=== PATIENT | female | born 1975 | race Hispanic/Latino ===

== ENCOUNTER 2017-09-23 09:23 | Observation (INO) | payer OTHER ==
[2017-09-23] MEDS ORDERED: IPRATROPIUM/ALBUTEROL SULFATE 3 ML SOLUTION IH ONE ×2 (09:38→09:50)
[2017-09-23] MEDS ORDERED: METHYLPREDNISOLONE SOD SUCC 125MG/2ML VIAL ONE (09:52)
[2017-09-23 10:04] LABS: BASOPHILS % (AUTO) 0.9 % (0.0-5.0); EOSINOPHILS % (AUTO) 12.5 % (0.0-8.0); HEMATOCRIT 35.9 % (36-48); LYMPHOCYTES % (AUTO) 16.7 % (21.0-51.0); MEAN CORPUSCULAR HEMOGLOBIN 25.6 pg (27.0-33.0); MEAN CORPUSCULAR HGB CONC 32.4 g/dL (32.0-36.0); MEAN CORPUSCULAR VOLUME 78.9 fL (79-99); MONOCYTES % (AUTO) 4.3 % (3.0-13.0); NEUTROPHILS % (AUTO) 65.6 % (40.0-77.0); NUCLEATED RED BLOOD CELLS 0.1 % (0.0-0.19); PLATELET COUNT (AUTO) 376 K/uL (130-400); RED BLOOD CELL COUNT(AUTO) 4.54 MIL/uL (4.00-5.50); RED CELL DISTRIBUTION WIDTH 16.8 % (11.0-15.5); WHITE BLOOD COUNT (AUTO) 9.8 K/uL (4.8-10.8)
[2017-09-23 10:29] LABS: CREATININE 0.8 mg/dL (0.5-1.5); POTASSIUM 4.2 mmol/L (3.5-5.1)
[2017-09-23 10:35] LABS: ALBUMIN 3.4 g/dL (3.5-5.0); BILIRUBIN,TOTAL 0.3 mg/dL (0.2-1.0); TOTAL PROTEIN, SERUM 7.4 g/dL (6.0-8.3)
== END 2017-09-23 11:39 | disposition left against medical advice (07) ==
LOC: EDH 09:23 → EDHIP 09:24
PROVIDERS: ADMIT Internal Medicine Nephrology; ATTEND Internal Medicine Nephrology
DX: J45.901 Unspecified asthma with (acute) exacerbation (principal); J18.9 Pneumonia, unspecified organism; J96.01 Acute respiratory failure with hypoxia
CPT/HCPCS: 36415; 71045; 80053; 85025; 94640 ×2; 99285; G0378 ×2; J2930

== ENCOUNTER 2018-05-17 11:56 | Emergency (ER) | payer OTHER ==
[2018-05-17] MEDS ORDERED: METHYLPREDNISOLONE SOD SUCC 125MG/2ML VIAL ONE (12:07)
[2018-05-17] MEDS ORDERED: IPRATROPIUM/ALBUTEROL SULFATE 3 ML SOLUTION IH ONE (12:10)
== END 2018-05-17 13:06 | disposition home or self-care (01) ==
LOC: EDH 11:56
DX: J45.21 Mild intermittent asthma with (acute) exacerbation (principal); Z79.899 Other long term (current) drug therapy
CPT/HCPCS: 94640; 96372; 99283; J2930

== ENCOUNTER 2019-05-16 09:00 | Emergency (ER) | payer OTHER ==
[2019-05-16] MEDS ORDERED: IPRATROPIUM/ALBUTEROL SULFATE 3 ML SOLUTION IH ONE (09:15)
[2019-05-16] MEDS ORDERED: METHYLPREDNISOLONE SOD SUCC 125MG/2ML VIAL ONE (09:26)
[2019-05-16] MEDS ORDERED: ALBUTEROL SULFATE 0.083% 2.5 MG/3 ML INH IH ONE (10:12)
== END 2019-05-16 11:35 | disposition home or self-care (01) ==
LOC: EDH 09:00
DX: J45.41 Moderate persistent asthma with (acute) exacerbation (principal)
CPT/HCPCS: 94640 ×3; 96374; 99291; J2930

== ENCOUNTER 2020-04-02 17:15 | Emergency (ER) | payer OTHER ==
[2020-04-02] MEDS ORDERED: ONDANSETRON HCL 4 MG/2 ML VIAL ONE (17:36)
[2020-04-02] MEDS ORDERED: SODIUM CHLORIDE 0.9% 1000ML 1,000 ML IV ONE (17:36)
[2020-04-02 17:37] LABS: BASOPHILS % (AUTO) 0.4 % (0.0-5.0); EOSINOPHILS % (AUTO) 2.9 % (0.0-8.0); HEMATOCRIT 35.4 % (36-48); MEAN CORPUSCULAR HEMOGLOBIN 21.9 pg (27.0-33.0); MEAN CORPUSCULAR HGB CONC 28.8 g/dL (32.0-36.0); MONOCYTES % (AUTO) 4.2 % (3.0-13.0); NEUTROPHILS % (AUTO) 81.1 % (40.0-77.0); PLATELET COUNT (AUTO) 522 K/uL (130-400); RED BLOOD CELL COUNT(AUTO) 4.66 MIL/uL (4.00-5.50); RED CELL DISTRIBUTION WIDTH 17.3 % (11.0-15.5); WHITE BLOOD COUNT (AUTO) 14.2 K/uL (4.8-10.8)
[2020-04-02 17:52] LABS: CREATININE 0.7 mg/dL (0.5-1.5); POTASSIUM 3.6 mmol/L (3.5-5.1)
[2020-04-02 17:58] LABS: ALBUMIN 3.9 g/dL (3.5-5.0); BILIRUBIN,TOTAL 0.3 mg/dL (0.2-1.0); TOTAL PROTEIN, SERUM 7.9 g/dL (6.0-8.3)
[2020-04-02 19:08] LABS: APPEARANCE,URINE Clear (CLEAR); BILIRUBIN,URINE Negative (NEGATIVE); COLOR,URINE Yellow (YELLOW); GLUCOSE, URINE (UA) Negative (NEGATIVE); KETONES,URINE Negative (NEGATIVE); LEUKOCYTE ESTERASE ,URINE Negative (NEGATIVE); NITRATE,URINE Negative (NEGATIVE); OCCULT BLOOD,URINE Negative (NEGATIVE); PROTEIN,URINE Negative (NEGATIVE)
[2020-04-02 19:10] LABS: HCG,QUAL RESULT NEGATIVE (NEGATIVE)
[2020-04-02] MEDS ORDERED: MECLIZINE HCL 25 MG TABLET ONE (19:13)
== END 2020-04-02 19:36 | disposition home or self-care (01) ==
LOC: EDH 17:15
DX: H81.10 Benign paroxysmal vertigo, unspecified ear (principal); J45.909 Unspecified asthma, uncomplicated; Z72.0 Tobacco use
CPT/HCPCS: 36415; 80053; 81003; 81025; 85025; 93005; 96361; 96374; 99284; J2405; J7030

== ENCOUNTER 2021-03-05 21:49 | Emergency (ER) | payer OTHER ==
[~2021-03-05] VITALS: Ht 160 cm; Wt 91.6 kg
[2021-03-05 22:28] LABS: BASOPHILS % (AUTO) 0.5 % (0.0-5.0); EOSINOPHILS % (AUTO) 5.4 % (0.0-8.0); HEMATOCRIT 37.4 % (36-48); LYMPHOCYTES % (AUTO) 17.4 % (21.0-51.0); MEAN CORPUSCULAR HEMOGLOBIN 22.3 pg (27.0-33.0); MEAN CORPUSCULAR HGB CONC 29.1 g/dL (32.0-36.0); MEAN CORPUSCULAR VOLUME 76.6 fL (79-99); MONOCYTES % (AUTO) 5.3 % (3.0-13.0); NEUTROPHILS % (AUTO) 70.9 % (40.0-77.0); PLATELET COUNT (AUTO) 418 K/uL (130-400); RED BLOOD CELL COUNT(AUTO) 4.88 MIL/uL (4.00-5.50); RED CELL DISTRIBUTION WIDTH 17.6 % (11.0-15.5); WHITE BLOOD COUNT (AUTO) 12.2 K/uL (4.8-10.8)
[2021-03-05 22:38] LABS: CREATININE 0.7 mg/dL (0.5-1.5); POTASSIUM 3.8 mmol/L (3.5-5.1)
[2021-03-05 22:39] VITALS: BP 140/86
[2021-03-05 22:47] LABS: ALBUMIN 3.7 g/dL (3.5-5.0); BILIRUBIN,TOTAL 0.3 mg/dL (0.2-1.0); CRP QUANTITATIVE 10.1 mg/L (0.00-9.0); TOTAL PROTEIN, SERUM 7.9 g/dL (6.0-8.3)
[2021-03-05] MEDS ORDERED: IPRATROPIUM/ALBUTEROL SULFATE 3 ML SOLUTION IH ONE (23:00)
[2021-03-05] MEDS ORDERED: ALBUTEROL 0.083% 2.5 MG/3 ML INH IH ONE (23:00)
[2021-03-05] MEDS ORDERED: SOLU-MEDROL 125MG VIAL IVP ONE (23:00)
[2021-03-05 23:56] VITALS: BP 125/79
[2021-03-06] MEDS ORDERED: ALBUTEROL 0.083% 2.5 MG/3 ML INH IH ONE (00:30)
[2021-03-06 00:35] VITALS: BP 140/80
[2021-03-06] MEDS ORDERED: ALBU1.252 IH (02:35)
[2021-03-06] MEDS ORDERED: ALBU8.5H8 IH (02:35)
[2021-03-06] MEDS ORDERED: PRED20TA3 PO (02:35)
[2021-03-06 02:56] VITALS: BP 112/70
== END 2021-03-06 03:05 | disposition home or self-care (01) ==
LOC: EDH 21:49
DX: J45.901 Unspecified asthma with (acute) exacerbation (principal); Z20.822 Contact with and (suspected) exposure to COVID-19; Z79.52 Long term (current) use of systemic steroids; Z79.899 Other long term (current) drug therapy
CPT/HCPCS: 36415; 71045; 80053; 82550; 84484; 85025; 86140; 87635; 87804 ×2; 93005; 94640 ×3; 96374; 99285; C9803; J2930; 94644

== ENCOUNTER 2021-05-24 14:08 | Emergency (ER) | payer OTHER ==
[~2021-05-24] VITALS: Ht 157.5 cm; Wt 82.6 kg
[~2021-05-24 14:08] MED LIST: ALBU1.252 IH; ALBU8.5H8 IH; PRED20TA3 PO
[2021-05-24 14:49] LABS: BASOPHILS % (AUTO) 0.6 % (0.0-5.0); EOSINOPHILS % (AUTO) 6.2 % (0.0-8.0); HEMATOCRIT 33.2 % (36-48); LYMPHOCYTES % (AUTO) 13.2 % (21.0-51.0); MEAN CORPUSCULAR HEMOGLOBIN 21.3 pg (27.0-33.0); MEAN CORPUSCULAR VOLUME 76.1 fL (79-99); MONOCYTES % (AUTO) 5.4 % (3.0-13.0); NEUTROPHILS % (AUTO) 74.1 % (40.0-77.0); PLATELET COUNT (AUTO) 483 K/uL (130-400); RED BLOOD CELL COUNT(AUTO) 4.36 MIL/uL (4.00-5.50); RED CELL DISTRIBUTION WIDTH 17.4 % (11.0-15.5)
[2021-05-24 14:58] LABS: CREATININE 0.8 mg/dL (0.5-1.5); POTASSIUM 3.7 mmol/L (3.5-5.1)
[2021-05-24 15:02] LABS: ALBUMIN 3.7 g/dL (3.5-5.0); BILIRUBIN,TOTAL 0.3 mg/dL (0.2-1.0); TOTAL PROTEIN, SERUM 7.6 g/dL (6.0-8.3)
[2021-05-24] MEDS ORDERED: IPRATROPIUM/ALBUTEROL SULFATE 3 ML SOLUTION IH ONE ×2 (16:00→16:30)
[2021-05-24] MEDS ORDERED: SOLU-MEDROL 125MG VIAL IVP ONE (16:00)
[2021-05-24] MEDS ORDERED: ALBUTEROL 0.083% 2.5 MG/3 ML INH IH ONE (16:26)
[2021-05-24 17:17] VITALS: BP 106/58
[2021-05-24] MEDS ORDERED: LORA10TA7 PO (17:31)
[2021-05-24] MEDS ORDERED: PRED5TAB PO (17:31)
== END 2021-05-24 18:18 | disposition home or self-care (01) ==
LOC: EDH 14:08
DX: J45.909 Unspecified asthma, uncomplicated (principal); Z20.822 Contact with and (suspected) exposure to COVID-19; Z79.899 Other long term (current) drug therapy; Z79.52 Long term (current) use of systemic steroids
CPT/HCPCS: 36415; 71045; 80053; 84484; 85025; 87635; 93005; 94640 ×3; 96374; 99285; C9803; J2930

== ENCOUNTER 2021-09-25 07:24 | Emergency (ER) | payer OTHER ==
[~2021-09-25] VITALS: Ht 157.5 cm; Wt 80.7 kg
[~2021-09-25 07:24] MED LIST changes: +LORA10TA7 PO; +PRED5TAB PO
[2021-09-25] MEDS ORDERED: KETOROLAC 60 MG VIAL (30MG/ML) IM ONE (08:00)
[2021-09-25] MEDS ORDERED: DICL50TA9 PO (08:15)
[2021-09-25] MEDS ORDERED: METH-662 PO (08:15)
[2021-09-25 08:17] VITALS: BP 125/75
== END 2021-09-25 08:22 | disposition home or self-care (01) ==
LOC: EDH 07:24
DX: G44.209 Tension-type headache, unspecified, not intractable (principal); J45.909 Unspecified asthma, uncomplicated; Z79.1 Long term (current) use of non-steroidal anti-inflammatories (NSAID); Z79.52 Long term (current) use of systemic steroids
CPT/HCPCS: 96372; 99283; J1885

== ENCOUNTER 2022-02-10 07:21 | Emergency (ER) | payer OTHER ==
[~2022-02-10] VITALS: Ht 157.5 cm; Wt 81.6 kg
[~2022-02-10 07:21] MED LIST changes: +DICL50TA9 PO; +METH-662 PO
[2022-02-10] MEDS ORDERED: IPRATROPIUM/ALBUTEROL SULFATE 3 ML SOLUTION IH ONE (07:45)
[2022-02-10 07:54] VITALS: BP 118/70
[2022-02-10] MEDS ORDERED: SOLU-MEDROL 125MG VIAL IVP ONE (08:00)
[2022-02-10 08:10] LABS: BASOPHILS % (AUTO) 0.8 % (0.0-5.0); EOSINOPHILS % (AUTO) 7.6 % (0.0-8.0); HEMATOCRIT 30.2 % (36-48); LYMPHOCYTES % (AUTO) 17.3 % (21.0-51.0); MEAN CORPUSCULAR HEMOGLOBIN 20.9 pg (27.0-33.0); MEAN CORPUSCULAR HGB CONC 28.1 g/dL (32.0-36.0); MEAN CORPUSCULAR VOLUME 74.4 fL (79-99); MONOCYTES % (AUTO) 6.1 % (3.0-13.0); NEUTROPHILS % (AUTO) 67.8 % (40.0-77.0); PLATELET COUNT (AUTO) 468 K/uL (130-400); RED BLOOD CELL COUNT(AUTO) 4.06 MIL/uL (4.00-5.50); RED CELL DISTRIBUTION WIDTH 19.1 % (11.0-15.5); WHITE BLOOD COUNT (AUTO) 8.3 K/uL (4.8-10.8)
[2022-02-10 08:22] LABS: CREATININE 0.7 mg/dL (0.5-1.5); POTASSIUM 3.6 mmol/L (3.5-5.1)
[2022-02-10 08:27] LABS: ALBUMIN 3.6 g/dL (3.5-5.0); TOTAL PROTEIN, SERUM 7.1 g/dL (6.0-8.3)
[2022-02-10] MEDS ORDERED: PRED20TA3 PO (09:12)
[2022-02-10] MEDS ORDERED: ALBUHFA IH (09:12)
== END 2022-02-10 09:18 | disposition home or self-care (01) ==
LOC: EDH 07:21
DX: J45.901 Unspecified asthma with (acute) exacerbation (principal); Z20.822 Contact with and (suspected) exposure to COVID-19; Z79.52 Long term (current) use of systemic steroids
CPT/HCPCS: 99284; 96374; 71045; 87635; 80053; 85025; 87804 ×2; 36415; 94640; C9803; J2930

== ENCOUNTER 2022-03-19 10:25 | Emergency (ER) | payer OTHER ==
[~2022-03-19] VITALS: Ht 157.5 cm; Wt 81.6 kg
[~2022-03-19 10:25] MED LIST changes: +ALBUHFA IH
[2022-03-19 10:43] LABS: BASOPHILS % (AUTO) 0.6 % (0.0-5.0); EOSINOPHILS % (AUTO) 4.5 % (0.0-8.0); HEMATOCRIT 33.3 % (36-48); LYMPHOCYTES % (AUTO) 13.5 % (21.0-51.0); MEAN CORPUSCULAR HEMOGLOBIN 21.4 pg (27.0-33.0); MEAN CORPUSCULAR HGB CONC 29.1 g/dL (32.0-36.0); MEAN CORPUSCULAR VOLUME 73.5 fL (79-99); MONOCYTES % (AUTO) 8.4 % (3.0-13.0); NEUTROPHILS % (AUTO) 72.4 % (40.0-77.0); PLATELET COUNT (AUTO) 357 K/uL (130-400); RED BLOOD CELL COUNT(AUTO) 4.53 MIL/uL (4.00-5.50); RED CELL DISTRIBUTION WIDTH 18.6 % (11.0-15.5); WHITE BLOOD COUNT (AUTO) 6.2 K/uL (4.8-10.8)
[2022-03-19] MEDS ORDERED: AZITHROMYCIN 500MG+NS 250ML 250 ML IV ONE (11:00)
[2022-03-19] MEDS ORDERED: SOLU-MEDROL 125MG VIAL IVP ONE (11:00)
[2022-03-19] MEDS ORDERED: CEFTRIAXONE 1G VIAL IV ONE (11:00)
[2022-03-19] MEDS: ALBUTEROL 0.083% 2.5 MG/3 ML INH IH PRN (11:12)
[2022-03-19] MEDS: IPRATROPIUM/ALBUTEROL SULFATE 3 ML SOLUTION IH PRN (11:12)
[2022-03-19 11:30] LABS: CREATININE 0.8 mg/dL (0.5-1.5); POTASSIUM 3.2 mmol/L (3.5-5.1)
[2022-03-19 11:47] LABS: ALBUMIN 3.6 g/dL (3.5-5.0); TOTAL PROTEIN, SERUM 7.4 g/dL (6.0-8.3)
[2022-03-19] MEDS ORDERED: MAGNESIUM 2GM PREMIX 50ML 50 ML IV STA (12:34)
[2022-03-19] MEDS ORDERED: ALBUTEROL 0.083% 2.5 MG/3 ML INH IH ONE (13:00)
[2022-03-19] MEDS ORDERED: PRED20TA3 PO (13:43)
[2022-03-19] MEDS ORDERED: CEFU500T67 PO (13:45)
[2022-03-19] MEDS ORDERED: ALBU8.5H8 IH (13:45)
[2022-03-19 14:02] VITALS: BP 103/55
== END 2022-03-19 14:11 | disposition home or self-care (01) ==
LOC: EDH 10:25
DX: J45.901 Unspecified asthma with (acute) exacerbation (principal); Z79.52 Long term (current) use of systemic steroids; Z82.49 Family history of ischemic heart disease and other diseases of the circulatory system
CPT/HCPCS: 99285; 96365; 71045; 96375; 96367; 84484; 80053; 85025; 36415; 96368; 94640; 94644; J3475; J2930; J0696; J0456

== ENCOUNTER 2023-02-11 09:24 | Emergency (ER) | payer OTHER ==
[~2023-02-11] VITALS: Ht 154.9 cm; Wt 86.2 kg
[~2023-02-11 09:24] MED LIST changes: +ADV500 IH; -ALBU8.5H8 IH; -ALBUHFA IH; -DICL50TA9 PO; +FLUT1BLS15 IH; +LEVO50TA4 PO; -METH-662 PO; +MONT-46 PO; -PRED5TAB PO
[2023-02-11] MEDS ORDERED: IPRATROPIUM/ALBUTEROL SULFATE 3 ML SOLUTION IH ONE (09:30)
[2023-02-11] MEDS ORDERED: SOLU-MEDROL 125MG VIAL ONE (09:35)
[2023-02-11 09:40] VITALS: PULSE 91; RESP 18
[2023-02-11 09:49] LABS: BASOPHILS # (AUTO) 0.06 K/uL (0.00-0.20); BASOPHILS % (AUTO) 0.7 % (0.0-5.0); EOSINOPHILS # (AUTO) 0.65 K/uL (0.00-0.70); EOSINOPHILS % (AUTO) 7.1 % (0.0-8.0); HEMATOCRIT 35.4 % (36-48); IMMATURE GRANULOCYTE ABSOLUTE 0.05 K/uL (0-1); LYMPHOCYTES # (AUTO) 1.7 K/uL (1.0-4.8); LYMPHOCYTES % (AUTO) 18.9 % (21.0-51.0); MEAN CORPUSCULAR HEMOGLOBIN 22.2 pg (27.0-33.0); MEAN CORPUSCULAR HGB CONC 28.5 g/dL (32.0-36.0); MONOCYTES # (AUTO) 0.5 K/uL (0.1-1.0); NEUTROPHILS # (AUTO) 6.2 K/uL (1.8-7.7); NEUTROPHILS % (AUTO) 67.8 % (40.0-77.0); PLATELET COUNT (AUTO) 407 K/uL (130-400); RED BLOOD CELL COUNT(AUTO) 4.54 MIL/uL (4.00-5.50); RED CELL DISTRIBUTION WIDTH 17.9 % (11.0-15.5); WHITE BLOOD COUNT (AUTO) 9.2 K/uL (4.8-10.8)
[2023-02-11 10:00] LABS: CREATININE 0.6 mg/dL (0.5-1.5); POTASSIUM 3.5 mmol/L (3.5-5.1)
[2023-02-11] MEDS ORDERED: SOLU-MEDROL 125MG VIAL IVP ONE (10:00)
[2023-02-11 10:02] LABS: ALBUMIN 3.5 g/dL (3.5-5.0); BILIRUBIN,TOTAL 0.4 mg/dL (0.2-1.0); TOTAL PROTEIN, SERUM 7.3 g/dL (6.0-8.3)
[2023-02-11 10:10] LABS: INFLUENZA TYPE A Negative For Type A (NEGATIVE); INFLUENZA TYPE B Negative For Type B (NEGATIVE)
[2023-02-11 11:21] LABS: SARS-CoV-2, RNA, NAAT NEGATIVE SARS CoV-2 (NEGATIVE)
[2023-02-11 13:33] VITALS: BP 118/79; PULSE 82; RESP 12; O2SAT 94
[2023-02-11] MEDS ORDERED: ALBUHFA IH (13:57)
[2023-02-11] MEDS ORDERED: ALBU1.252 IH (13:57)
[2023-02-11] MEDS ORDERED: PRED20TA3 PO (13:57)
== END 2023-02-11 14:05 | disposition home or self-care (01) ==
LOC: EDH 09:24
DX: J45.901 Unspecified asthma with (acute) exacerbation (principal); Z20.822 Contact with and (suspected) exposure to COVID-19; Z79.899 Other long term (current) drug therapy
CPT/HCPCS: 99284; 96374; 76856; 71045; 87635; 80053; 85025; 87804 ×2; 36415; 94640; C9803; J2930

== ENCOUNTER 2023-03-09 16:29 | Inpatient (IN) | payer OTHER ==
[~2023-03-09] VITALS: Ht 157.5 cm; Wt 83.0 kg
[~2023-03-09 16:29] MED LIST changes: +ALBUHFA IH
[2023-03-09 17:06] LABS: BASOPHILS # (AUTO) 0.06 K/uL (0.00-0.20); BASOPHILS % (AUTO) 0.3 % (0.0-5.0); EOSINOPHILS # (AUTO) 0.15 K/uL (0.00-0.70); EOSINOPHILS % (AUTO) 0.8 % (0.0-8.0); HEMATOCRIT 26.9 % (36-48); IMMATURE GRANULOCYTE ABSOLUTE 0.13 K/uL (0-1); LYMPHOCYTES # (AUTO) 1.2 K/uL (1.0-4.8); LYMPHOCYTES % (AUTO) 6.4 % (21.0-51.0); MEAN CORPUSCULAR HEMOGLOBIN 21.5 pg (27.0-33.0); MEAN CORPUSCULAR HGB CONC 28.3 g/dL (32.0-36.0); MEAN CORPUSCULAR VOLUME 76.2 fL (79-99); MONOCYTES % (AUTO) 5.1 % (3.0-13.0); NEUTROPHILS # (AUTO) 16.6 K/uL (1.8-7.7); NEUTROPHILS % (AUTO) 86.7 % (40.0-77.0); PLATELET COUNT (AUTO) 510 K/uL (130-400); RED BLOOD CELL COUNT(AUTO) 3.53 MIL/uL (4.00-5.50); WHITE BLOOD COUNT (AUTO) 19.2 K/uL (4.8-10.8)
[2023-03-09] MEDS ORDERED: IPRATROPIUM/ALBUTEROL SULFATE 3 ML SOLUTION IH ONE (17:30)
[2023-03-09] MEDS ORDERED: KETOROLAC 30MG VIAL (30MG/ML) IVP ONE (17:30)
[2023-03-09] MEDS ORDERED: FAMOTIDINE 20MG VIAL IV ONE (17:30)
[2023-03-09] MEDS ORDERED: DEXAMETHASONE SOD PHOSPHATE 4 MG/ML 1ML VIAL IVP ONE (17:30)
[2023-03-09] MEDS ORDERED: METOCLOPRAMIDE 10 MG/2 ML VIAL IVP ONE (17:30)
[2023-03-09] MEDS ORDERED: 0.9%NACL 1000ML 1,503 ML IV ONE (17:30)
[2023-03-09 17:32] LABS: INFLUENZA TYPE A Negative For Type A (NEGATIVE); INFLUENZA TYPE B Negative For Type B (NEGATIVE)
[2023-03-09 17:34] LABS: SARS-CoV-2, RNA, NAAT NEGATIVE SARS CoV-2 (NEGATIVE)
[2023-03-09 17:42] LABS: BILIRUBIN,TOTAL 0.5 mg/dL (0.2-1.0); CREATININE 0.7 mg/dL (0.5-1.5); POTASSIUM 3.2 mmol/L (3.5-5.1); TOTAL PROTEIN, SERUM 7.5 g/dL (6.0-8.3)
[2023-03-09 17:50] VITALS: PULSE 101; RESP 18
[2023-03-09] MEDS ORDERED: LORAZEPAM 2 MG/ML 1 ML VIAL IVP ONE (18:00)
[2023-03-09] MEDS ORDERED: CEFTRIAXONE 2GM VIAL IVPB ONE (18:00)
[2023-03-09 20:06] VITALS: O2SAT 91
[2023-03-09] MEDS: CEFTRIAXONE 2GM VIAL IVPB SCH (21:00)
[2023-03-09] MEDS ORDERED: ACETAMINOPHEN 325 MG TAB PO PRN ×2 (21:00)
[2023-03-09] MEDS ORDERED: GUAIFENESIN-DM 200/20 MG 10 ML PO PRN (21:00)
[2023-03-09] MEDS: DEXAMETHASONE SOD PHOSPHATE 4 MG/ML 1ML VIAL IVP SCH (21:00)
[2023-03-09] MEDS ORDERED: ONDANSETRON 4MG INJ IV PRN (21:00)
[2023-03-09] MEDS ORDERED: POTASSIUM CHLORIDE 20MEQ/100ML 100 ML IV PRN (21:30)
[2023-03-09] MEDS ORDERED: POTASSIUM CHLORIDE 10% ELIXIR 20 MEQ/15 ML UDCUP PO PRN (21:30)
[2023-03-09] MEDS ORDERED: MAGNESIUM 2GM PREMIX 50ML 50 ML IV PRN (21:30)
[2023-03-09] MEDS: IPRATROPIUM/ALBUTEROL SULFATE 3 ML SOLUTION IH SCH (21:45)
[2023-03-09 21:46] VITALS: PULSE 107; RESP 18
[2023-03-09] MEDS: KCL 20 MEQ ERTAB PO PRN ×2 (21:48→23:43)
[2023-03-09 22:04] VITALS: BP 117/68; PULSE 101; RESP 16
[2023-03-10] VITALS (8 sets, daily range): BP systolic 95–122; BP diastolic 50–64; PULSE 85–101; RESP 14–20; O2SAT 99
[2023-03-10] MEDS: KCL 20 MEQ ERTAB PO PRN (01:31)
[2023-03-10] MEDS: IPRATROPIUM/ALBUTEROL SULFATE 3 ML SOLUTION IH SCH ×3 (01:40→10:00)
[2023-03-10 05:23] LABS: BASOPHILS # (AUTO) 0.02 K/uL (0.00-0.20); BASOPHILS % (AUTO) 0.1 % (0.0-5.0); HEMATOCRIT 23.5 % (36-48); IMMATURE GRANULOCYTE ABSOLUTE 0.17 K/uL (0-1); LYMPHOCYTES # (AUTO) 0.6 K/uL (1.0-4.8); LYMPHOCYTES % (AUTO) 3.8 % (21.0-51.0); MEAN CORPUSCULAR HGB CONC 28.5 g/dL (32.0-36.0); MEAN CORPUSCULAR VOLUME 77.3 fL (79-99); MONOCYTES # (AUTO) 0.4 K/uL (0.1-1.0); MONOCYTES % (AUTO) 2.4 % (3.0-13.0); NEUTROPHILS # (AUTO) 15.8 K/uL (1.8-7.7); NEUTROPHILS % (AUTO) 92.7 % (40.0-77.0); PLATELET COUNT (AUTO) 450 K/uL (130-400); RED BLOOD CELL COUNT(AUTO) 3.04 MIL/uL (4.00-5.50); RED CELL DISTRIBUTION WIDTH 17.1 % (11.0-15.5)
[2023-03-10 05:30] LABS: ALBUMIN 2.7 g/dL (3.5-5.0); BILIRUBIN,TOTAL 0.4 mg/dL (0.2-1.0); CREATININE 0.7 mg/dL (0.5-1.5); POTASSIUM 4.1 mmol/L (3.5-5.1)
[2023-03-10] MEDS ORDERED: AZITHROMYCIN 500MG+NS 250ML IVPB SCH (07:30)
[2023-03-10] MEDS ORDERED: CEFTRIAXONE 1G VIAL ONE (08:09)
[2023-03-10] MEDS: DEXAMETHASONE SOD PHOSPHATE 4 MG/ML 1ML VIAL IVP SCH (08:23)
[2023-03-10] MEDS: CEFTRIAXONE 2GM VIAL IVPB SCH (08:24)
[2023-03-10 10:19] LABS: CHOLESTEROL 176 mg/dL (<200); HDL CHOLESTEROL 69 mg/dL (35-85); LDL DIRECT 89 mg/dL (0-99); TRIGLYCERIDES 60 mg/dL (30-200)
[2023-03-10] MEDS ORDERED: IPRATROPIUM/ALBUTEROL SULFATE 3 ML SOLUTION IH SCH (18:00)
== END 2023-03-10 18:00 | disposition left against medical advice (07) | DRG 202 ==
LOC: EDH 16:29 → EDHIP 16:30 → 4DH 22:04
PROVIDERS: ADMIT Hospitalist; ATTEND Hospitalist
PROC: 30233N1 Transfusion of Nonautologous Red Blood Cells into Peripheral Vein, Percutaneous Approach (ICD-10-PCS; principal; 2023-03-10)
DX: J45.901 Unspecified asthma with (acute) exacerbation (principal); E44.1 Mild protein-calorie malnutrition; Z20.822 Contact with and (suspected) exposure to COVID-19; E03.9 Hypothyroidism, unspecified; D64.9 Anemia, unspecified; D75.839 Thrombocytosis, unspecified; E87.6 Hypokalemia; J02.0 Streptococcal pharyngitis; Z53.29 Procedure and treatment not carried out because of patient's decision for other reasons; Z82.49 Family history of ischemic heart disease and other diseases of the circulatory system; Z68.33 Body mass index [BMI] 33.0-33.9, adult
CPT/HCPCS: 36415; 36430; 71045; 80053; 80061; 82306; 83605; 84145; 84484; 85025; 86140; 86850; 86900; 86901; 86923; 87040; 87635; 87804; 87880; 93005; 94640; 94664; C9803; G0378; J0456; J0696; J1100; J1885; J2765; J3490; P9016

== ENCOUNTER 2023-05-14 06:23 | Emergency (ER) | payer OTHER ==
[~2023-05-14] VITALS: Ht 157.5 cm; Wt 83.1 kg
[~2023-05-14 06:23] MED LIST changes: -ALBUHFA IH; -FLUT1BLS15 IH; -PRED20TA3 PO
[2023-05-14 06:52] LABS: BASOPHILS # (AUTO) 0.08 K/uL (0.00-0.20); BASOPHILS % (AUTO) 0.4 % (0.0-5.0); EOSINOPHILS % (AUTO) 1.6 % (0.0-8.0); HEMATOCRIT 34.4 % (36-48); IMMATURE GRANULOCYTE ABSOLUTE 0.15 K/uL (0-1); LYMPHOCYTES # (AUTO) 2.3 K/uL (1.0-4.8); LYMPHOCYTES % (AUTO) 12.7 % (21.0-51.0); MEAN CORPUSCULAR HEMOGLOBIN 23.1 pg (27.0-33.0); MEAN CORPUSCULAR HGB CONC 29.7 g/dL (32.0-36.0); MEAN CORPUSCULAR VOLUME 77.8 fL (79-99); MONOCYTES # (AUTO) 1.1 K/uL (0.1-1.0); MONOCYTES % (AUTO) 5.8 % (3.0-13.0); NEUTROPHILS # (AUTO) 14.3 K/uL (1.8-7.7); NEUTROPHILS % (AUTO) 78.7 % (40.0-77.0); PLATELET COUNT (AUTO) 484 K/uL (130-400); RED BLOOD CELL COUNT(AUTO) 4.42 MIL/uL (4.00-5.50); RED CELL DISTRIBUTION WIDTH 18.5 % (11.0-15.5); WHITE BLOOD COUNT (AUTO) 18.2 K/uL (4.8-10.8)
[2023-05-14] MEDS ORDERED: IPRATROPIUM/ALBUTEROL SULFATE 3 ML SOLUTION IH ONE ×3 (07:00)
[2023-05-14 07:10] VITALS: PULSE 88; RESP 18
[2023-05-14 07:17] VITALS: PULSE 91; RESP 18
[2023-05-14 07:24] VITALS: PULSE 93; RESP 18
[2023-05-14 07:26] LABS: SARS-CoV-2, RNA, NAAT NEGATIVE SARS CoV-2 (NEGATIVE)
[2023-05-14 07:30] LABS: INFLUENZA TYPE A Negative For Type A (NEGATIVE); INFLUENZA TYPE B Negative For Type B (NEGATIVE)
[2023-05-14 07:31] LABS: ALBUMIN 3.4 g/dL (3.5-5.0); BILIRUBIN,TOTAL 0.3 mg/dL (0.2-1.0); CREATININE 0.6 mg/dL (0.5-1.5); POTASSIUM 3.5 mmol/L (3.5-5.1); TOTAL PROTEIN, SERUM 7.2 g/dL (6.0-8.3)
[2023-05-14] MEDS ORDERED: 0.9%NACL 1000ML 1,000 ML IV ONE (08:30)
[2023-05-14] MEDS ORDERED: SOLU-MEDROL 125MG VIAL IVP ONE (08:30)
[2023-05-14] MEDS ORDERED: GUAIFENESIN 600 MG TABLET.ER PO ONE (08:30)
[2023-05-14 09:21] LABS: MAGNESIUM 1.9 mg/dL (1.80-2.40); THYROID STIMULATING HORMONE 2.34 uIU/mL (0.36-3.74)
[2023-05-14] MEDS ORDERED: AUD IH (11:10)
[2023-05-14] MEDS ORDERED: GUAI600T50 PO (11:10)
[2023-05-14] MEDS ORDERED: ALBUHFA IH (11:10)
[2023-05-14 11:58] VITALS: BP 136/86; PULSE 77; RESP 18; O2SAT 94
== END 2023-05-14 12:01 | disposition home or self-care (01) ==
LOC: EDH 06:23
DX: J45.901 Unspecified asthma with (acute) exacerbation (principal); J20.9 Acute bronchitis, unspecified; E03.9 Hypothyroidism, unspecified; Z20.822 Contact with and (suspected) exposure to COVID-19; Z79.899 Other long term (current) drug therapy
CPT/HCPCS: 99285; 96374; 71046; 71045; 87635; 84443; 83735; 84484; 80053; 85025; 87804 ×2; 36415; 93005; 94640 ×3; C9803; J7030; J2930

== ENCOUNTER 2023-05-30 21:17 | Emergency (ER) | payer OTHER ==
[~2023-05-30 21:17] MED LIST changes: +ALBUHFA IH; +AUD IH; +GUAI600T50 PO
[2023-05-31] MEDS ORDERED: AUD IH (07:44)
[2023-05-31] MEDS ORDERED: ALBUHFA IH (07:44)
== END 2023-05-30 23:45 | disposition left against medical advice (07) ==
LOC: EDH 21:17
DX: R06.02 Shortness of breath (principal); Z53.21 Procedure and treatment not carried out due to patient leaving prior to being seen by health care provider

== ENCOUNTER 2023-05-31 05:41 | Emergency (ER) | payer OTHER ==
[~2023-05-31] VITALS: Ht 167.6 cm; Wt 83.5 kg
[2023-05-31] MEDS ORDERED: SOLU-MEDROL 125MG VIAL ONE (05:54)
[2023-05-31] MEDS ORDERED: SOLU-MEDROL 125MG VIAL IVP ONE (06:00)
[2023-05-31] MEDS ORDERED: IPRATROPIUM/ALBUTEROL SULFATE 3 ML SOLUTION IH ONE ×2 (06:00→08:00)
[2023-05-31 06:11] VITALS: PULSE 93; RESP 18
[2023-05-31] MEDS ORDERED: AUD IH (07:44)
[2023-05-31] MEDS ORDERED: ALBUHFA IH (07:44)
[2023-05-31 07:46] LABS: HEMATOCRIT 34.5 % (36-48); MEAN CORPUSCULAR HEMOGLOBIN 22.7 pg (27.0-33.0); MEAN CORPUSCULAR HGB CONC 28.7 g/dL (32.0-36.0); MEAN CORPUSCULAR VOLUME 78.9 fL (79-99); PLATELET COUNT (AUTO) 401 K/uL (130-400); RED BLOOD CELL COUNT(AUTO) 4.37 MIL/uL (4.00-5.50); RED CELL DISTRIBUTION WIDTH 18.4 % (11.0-15.5)
[2023-05-31 08:06] VITALS: PULSE 84; RESP 18
[2023-05-31 08:17] LABS: BASOPHILS % (MANUAL) 1 % (0-2); EOSINOPHILS % (MANUAL) 11 % (1-6); LYMPHOCYTES % (MANUAL) 14 % (22-44); MAN.DIFF COMMENT-IMPRESSION MANUAL DIFFERENTIAL; PLATELET MORPHOLOGY COMMENT ADEQUATE; SEGMENTED NEUTROPHILS % 74 % (40-70); TOTAL CELLS COUNTED 100
[2023-05-31 08:48] LABS: CREATININE 0.6 mg/dL (0.5-1.5); POTASSIUM 3.9 mmol/L (3.5-5.1)
[2023-05-31 08:59] LABS: ALBUMIN 3.4 g/dL (3.5-5.0); BILIRUBIN,TOTAL 0.3 mg/dL (0.2-1.0); TOTAL PROTEIN, SERUM 7.3 g/dL (6.0-8.3)
[2023-05-31 09:12] VITALS: BP 125/84; PULSE 98; RESP 19; O2SAT 95
== END 2023-05-31 09:19 | disposition home or self-care (01) ==
LOC: EDH 05:41
DX: J45.901 Unspecified asthma with (acute) exacerbation (principal); E03.9 Hypothyroidism, unspecified; Z79.899 Other long term (current) drug therapy; Z98.890 Other specified postprocedural states
CPT/HCPCS: 99285; 96374; 71045; 80053; 85025; 36415; 94640 ×2; J2930

== ENCOUNTER 2023-06-20 16:29 | Inpatient (IN) | payer OTHER ==
[~2023-06-20] VITALS: Ht 152.4 cm; Wt 83.5 kg
[2023-06-20] MEDS ORDERED: IPRATROPIUM/ALBUTEROL SULFATE 3 ML SOLUTION IH ONE ×3 (16:39→19:00)
[2023-06-20 16:44] VITALS: PULSE 100; RESP 24
[2023-06-20 17:37] LABS: BASOPHILS # (AUTO) 0.06 K/uL (0.00-0.20); BASOPHILS % (AUTO) 0.6 % (0.0-5.0); EOSINOPHILS # (AUTO) 0.74 K/uL (0.00-0.70); EOSINOPHILS % (AUTO) 6.9 % (0.0-8.0); HEMATOCRIT 32.1 % (36-48); IMMATURE GRANULOCYTE ABSOLUTE 0.04 K/uL (0-1); LYMPHOCYTES # (AUTO) 1.5 K/uL (1.0-4.8); LYMPHOCYTES % (AUTO) 13.5 % (21.0-51.0); MEAN CORPUSCULAR HEMOGLOBIN 22.6 pg (27.0-33.0); MEAN CORPUSCULAR VOLUME 78.1 fL (79-99); MONOCYTES # (AUTO) 0.6 K/uL (0.1-1.0); MONOCYTES % (AUTO) 5.1 % (3.0-13.0); NEUTROPHILS # (AUTO) 7.9 K/uL (1.8-7.7); NEUTROPHILS % (AUTO) 73.5 % (40.0-77.0); PLATELET COUNT (AUTO) 426 K/uL (130-400); RED BLOOD CELL COUNT(AUTO) 4.11 MIL/uL (4.00-5.50); RED CELL DISTRIBUTION WIDTH 18.3 % (11.0-15.5); WHITE BLOOD COUNT (AUTO) 10.7 K/uL (4.8-10.8)
[2023-06-20 17:52] LABS: CREATININE 0.6 mg/dL (0.5-1.5); POTASSIUM 3.5 mmol/L (3.5-5.1)
[2023-06-20 18:46] LABS: COVID19 (SARS ANTIGEN RAPID) PRESUMPTIVE NEGATIVE (NEGATIVE)
[2023-06-20 18:47] LABS: INFLUENZA TYPE A Negative For Type A (NEGATIVE); INFLUENZA TYPE B Negative For Type B (NEGATIVE)
[2023-06-20] MEDS: ASPIRIN 81MG CHEW TAB PO ONE ×2 (18:48→19:08)
[2023-06-20] MEDS: NITROGLYCERIN 1GM OINT 1 INCH/1GM TD ONE ×2 (18:49→19:08)
[2023-06-20 19:42] VITALS: PULSE 95; RESP 24
[2023-06-20] MEDS ORDERED: DEXAMETHASONE SOD PHOSPHATE 4 MG/ML 1ML VIAL IM ONE (20:00)
[2023-06-20] MEDS ORDERED: ACETAMINOPHEN 325 MG TAB PO PRN ×2 (20:30)
[2023-06-20] MEDS ORDERED: ONDANSETRON 4MG INJ IV PRN (20:30)
[2023-06-20] MEDS ORDERED: MORPHINE 4 MG SYG IV PRN (20:30)
[2023-06-20] MEDS ORDERED: MORPHINE 2 MG SYG IV PRN (20:30)
[2023-06-20] MEDS ORDERED: GUAIFENESIN-DM 200/20 MG 10 ML PO PRN (20:30)
[2023-06-20 20:42] LABS: ABG BASE EXCESS 3.6 mmol/L (-2.0-3.0); ABG HCO3 28.4 mmol/L (21.0-28.0); ABG OXYGEN SATURATION 90.9 % (95.0-99.0); ABG PCO2 44 mmHg (32-45); DEVICE COMMENT RR; PO2, ARTERIAL BG 58.4 mmHg (83.0-108.0); VENT MODE, BG RA (ROOM AIR)
[2023-06-20] MEDS ORDERED: PREDNISONE 20 MG TABLET PO SCH (21:00)
[2023-06-20] MEDS: FAMOTIDINE 20MG TAB PO SCH (21:11)
[2023-06-20] MEDS: PENICILLIN V POTASSIUM 500 MG TABLET PO SCH (21:11)
[2023-06-20] MEDS ORDERED: SOLU-MEDROL 125MG VIAL IVP ONE (22:00)
[2023-06-21] VITALS (14 sets, daily range): BP systolic 118–142; BP diastolic 75–89; PULSE 76–98; RESP 16–24; O2SAT 94–98
[2023-06-21] MEDS ORDERED: 0.9%NACL 1000ML 1,000 ML IV SCH
[2023-06-21] MEDS ORDERED: ALBU2.5V2 IH (00:14)
[2023-06-21] MEDS: IPRATROPIUM/ALBUTEROL SULFATE 3 ML SOLUTION IH SCH ×4 (01:31→19:54)
[2023-06-21] MEDS: SOLU-MEDROL 40MG VIAL IVP SCH ×3 (03:13→20:07)
[2023-06-21 04:10] LABS: BASOPHILS # (AUTO) 0.02 K/uL (0.00-0.20); BASOPHILS % (AUTO) 0.1 % (0.0-5.0); EOSINOPHILS # (AUTO) 0.01 K/uL (0.00-0.70); EOSINOPHILS % (AUTO) 0.1 % (0.0-8.0); HEMATOCRIT 33.4 % (36-48); LYMPHOCYTES # (AUTO) 0.6 K/uL (1.0-4.8); LYMPHOCYTES % (AUTO) 3.8 % (21.0-51.0); MEAN CORPUSCULAR HEMOGLOBIN 22.6 pg (27.0-33.0); MEAN CORPUSCULAR HGB CONC 28.7 g/dL (32.0-36.0); MEAN CORPUSCULAR VOLUME 78.8 fL (79-99); MONOCYTES % (AUTO) 0.3 % (3.0-13.0); NEUTROPHILS # (AUTO) 13.7 K/uL (1.8-7.7); PLATELET COUNT (AUTO) 466 K/uL (130-400); RED BLOOD CELL COUNT(AUTO) 4.24 MIL/uL (4.00-5.50); RED CELL DISTRIBUTION WIDTH 17.8 % (11.0-15.5); WHITE BLOOD COUNT (AUTO) 14.5 K/uL (4.8-10.8)
[2023-06-21 04:22] LABS: % IRON SATURATION 4.3 % (22-44)
[2023-06-21 04:31] LABS: CREATININE 0.7 mg/dL (0.5-1.5); POTASSIUM 3.9 mmol/L (3.5-5.1); THYROID STIMULATING HORMONE 0.47 uIU/mL (0.36-3.74)
[2023-06-21] MEDS: FAMOTIDINE 20MG TAB PO SCH ×2 (09:49→20:07)
[2023-06-21] MEDS: PENICILLIN V POTASSIUM 500 MG TABLET PO SCH ×2 (09:49→20:07)
[2023-06-21] MEDS: ENOXAPARIN SODIUM 40 MG/0.4 ML SYRINGE SQ SCH (09:50)
[2023-06-21] MEDS ORDERED: HYDRALAZINE 20MG/ML VIAL IV PRN (10:00)
[2023-06-21] MEDS ORDERED: ONDANSETRON 4MG TABLET PO PRN (13:00)
[2023-06-21] MEDS: BUDESONIDE 0.5 MG/2 ML INH IH SCH (20:13)
[2023-06-22] VITALS (9 sets, daily range): BP systolic 115–132; BP diastolic 66–90; PULSE 68–96; RESP 18–20; O2SAT 94–95
[2023-06-22] MEDS: IPRATROPIUM/ALBUTEROL SULFATE 3 ML SOLUTION IH SCH ×3 (01:12→11:32)
[2023-06-22 03:29] LABS: HEMATOCRIT 30.6 % (36-48); MEAN CORPUSCULAR HGB CONC 29.1 g/dL (32.0-36.0); MEAN CORPUSCULAR VOLUME 79.1 fL (79-99); RED BLOOD CELL COUNT(AUTO) 3.87 MIL/uL (4.00-5.50); RED CELL DISTRIBUTION WIDTH 17.9 % (11.0-15.5); WHITE BLOOD COUNT (AUTO) 19.7 K/uL (4.8-10.8)
[2023-06-22] MEDS: SOLU-MEDROL 40MG VIAL IVP SCH (03:45)
[2023-06-22 03:50] LABS: ALBUMIN 3.1 g/dL (3.5-5.0); BILIRUBIN,TOTAL 0.2 mg/dL (0.2-1.0); CREATININE 0.6 mg/dL (0.5-1.5); POTASSIUM 4.3 mmol/L (3.5-5.1); TOTAL PROTEIN, SERUM 6.8 g/dL (6.0-8.3)
[2023-06-22] MEDS: BUDESONIDE 0.5 MG/2 ML INH IH SCH (07:14)
[2023-06-22] MEDS: ENOXAPARIN SODIUM 40 MG/0.4 ML SYRINGE SQ SCH (09:33)
[2023-06-22] MEDS: FAMOTIDINE 20MG TAB PO SCH (09:33)
[2023-06-22] MEDS: PENICILLIN V POTASSIUM 500 MG TABLET PO SCH (09:33)
[2023-06-22] MEDS ORDERED: AMOX1TAB16 PO (13:37)
[2023-06-22] MEDS ORDERED: ALBU0.63 IH (13:37)
== END 2023-06-22 14:42 | disposition home or self-care (01) | DRG 189 ==
LOC: EDH 16:29 → EDHIP 16:30 → 2AH 23:06
PROVIDERS: ADMIT Internal Medicine; ATTEND Internal Medicine
DX: J96.01 Acute respiratory failure with hypoxia (principal); J45.41 Moderate persistent asthma with (acute) exacerbation; J02.0 Streptococcal pharyngitis; D50.9 Iron deficiency anemia, unspecified; E66.9 Obesity, unspecified; E03.9 Hypothyroidism, unspecified; F41.9 Anxiety disorder, unspecified; S92.352A Displaced fracture of fifth metatarsal bone, left foot, initial encounter for closed fracture; Z68.36 Body mass index [BMI] 36.0-36.9, adult; Z56.0 Unemployment, unspecified; Z59.7 Insufficient social insurance and welfare support; Z75.3 Unavailability and inaccessibility of health-care facilities; Z82.49 Family history of ischemic heart disease and other diseases of the circulatory system; Z87.891 Personal history of nicotine dependence; W18.39XA Other fall on same level, initial encounter; Y93.89 Activity, other specified; Y92.89 Other specified places as the place of occurrence of the external cause; Y99.8 Other external cause status
CPT/HCPCS: 36415; 36600; 71045; 73630; 80048; 80053; 82728; 82803; 83540; 83550; 83605; 83735; 84443; 84484; 85025; 85027; 85045; 85378; 87426; 87804; 87880; 93005; 94640; 94664; G0378; J1100; J1650; J2920; J2930

== ENCOUNTER 2024-04-16 10:55 | Emergency (ER) | payer SELFPAY ==
[~2024-04-16] VITALS: Ht 157.5 cm; Wt 85.3 kg
[~2024-04-16 10:55] MED LIST changes: -ADV500 IH; +ALBU0.63 IH; -ALBU1.252 IH; +ALBU2.5V2 IH; -ALBUHFA IH; +AMOX1TAB16 PO; -AUD IH; -GUAI600T50 PO; -LORA10TA7 PO; -MONT-46 PO
[2024-04-16 11:49] LABS: BASOPHILS # (AUTO) 0.08 K/uL (0.00-0.20); BASOPHILS % (AUTO) 0.7 % (0.0-5.0); EOSINOPHILS # (AUTO) 0.91 K/uL (0.00-0.70); EOSINOPHILS % (AUTO) 8.2 % (0.0-8.0); HEMATOCRIT 32.7 % (36-48); IMMATURE GRANULOCYTE ABSOLUTE 0.06 K/uL (0-1); LYMPHOCYTES # (AUTO) 1.9 K/uL (1.0-4.8); LYMPHOCYTES % (AUTO) 17.1 % (21.0-51.0); MEAN CORPUSCULAR HEMOGLOBIN 21.2 pg (27.0-33.0); MEAN CORPUSCULAR HGB CONC 28.1 g/dL (32.0-36.0); MEAN CORPUSCULAR VOLUME 75.3 fL (79-99); MONOCYTES # (AUTO) 0.7 K/uL (0.1-1.0); MONOCYTES % (AUTO) 5.9 % (3.0-13.0); NEUTROPHILS # (AUTO) 7.5 K/uL (1.8-7.7); NEUTROPHILS % (AUTO) 67.6 % (40.0-77.0); PLATELET COUNT (AUTO) 537 K/uL (130-400); RED BLOOD CELL COUNT(AUTO) 4.34 MIL/uL (4.00-5.50); RED CELL DISTRIBUTION WIDTH 17.7 % (11.0-15.5); WHITE BLOOD COUNT (AUTO) 11.2 K/uL (4.8-10.8)
[2024-04-16 12:01] LABS: CREATININE 0.6 mg/dL (0.5-1.0); POTASSIUM 3.9 mmol/L (3.5-5.1)
[2024-04-16 12:32] VITALS: PULSE 79; RESP 22
[2024-04-16] MEDS: IpraTROPium/alBUTERol SULFATE 3 ML SOLUTION IH PRN (12:32)
[2024-04-16 12:34] VITALS: BP 145/86; PULSE 98; RESP 22; TEMP 98.4; O2SAT 97
[2024-04-16] MEDS: Solu-medROL 125MG VIAL IVP ONE (12:40)
[2024-04-16 13:01] LABS: COVID19 (SARS ANTIGEN RAPID) PRESUMPTIVE NEGATIVE (NEGATIVE); INFLUENZA TYPE A Negative For Type A (NEGATIVE); INFLUENZA TYPE B Negative For Type B (NEGATIVE)
[2024-04-16] MEDS ORDERED: MONT-47 PO (13:45)
[2024-04-16] MEDS ORDERED: LORA10TA7 PO (13:45)
[2024-04-16] MEDS ORDERED: ALBUHFA IH (13:45)
== END 2024-04-16 15:26 | disposition home or self-care (01) ==
LOC: EDH 10:55
DX: J45.901 Unspecified asthma with (acute) exacerbation (principal); D64.9 Anemia, unspecified; E03.9 Hypothyroidism, unspecified; Z79.890 Hormone replacement therapy; Z79.899 Other long term (current) drug therapy; Z20.822 Contact with and (suspected) exposure to COVID-19
CPT/HCPCS: 99284; 96374; 71045; 87426; 80048; 85025; 87804 ×2; 36415; 94640; J2919

== ENCOUNTER 2024-07-04 13:15 | Emergency (ER) | payer SELFPAY ==
[~2024-07-04] VITALS: Ht 157.5 cm; Wt 86.2 kg
[~2024-07-04 13:15] MED LIST changes: +ALBUHFA IH; +LORA10TA7 PO; +MONT-47 PO
--- NOTE | 2024-07-04 13:50 | NUR ---
SEEN BY MARGARETTE SALINAS AT TRIAGE 2
[2024-07-04 13:53] LABS: BASOPHILS # (AUTO) 0.09 K/uL (0.00-0.20); BASOPHILS % (AUTO) 0.8 % (0.0-5.0); EOSINOPHILS # (AUTO) 1.05 K/uL (0.00-0.70); EOSINOPHILS % (AUTO) 9.7 % (0.0-8.0); HEMATOCRIT 31.2 % (36-48); IMMATURE GRANULOCYTE ABSOLUTE 0.06 K/uL (0-1); LYMPHOCYTES # (AUTO) 1.7 K/uL (1.0-4.8); LYMPHOCYTES % (AUTO) 15.5 % (21.0-51.0); MEAN CORPUSCULAR HEMOGLOBIN 21.1 pg (27.0-33.0); MEAN CORPUSCULAR HGB CONC 27.2 g/dL (32.0-36.0); MEAN CORPUSCULAR VOLUME 77.4 fL (79-99); MONOCYTES # (AUTO) 0.6 K/uL (0.1-1.0); MONOCYTES % (AUTO) 5.5 % (3.0-13.0); NEUTROPHILS # (AUTO) 7.4 K/uL (1.8-7.7); NEUTROPHILS % (AUTO) 67.9 % (40.0-77.0); PLATELET COUNT (AUTO) 485 K/uL (130-400); RED BLOOD CELL COUNT(AUTO) 4.03 MIL/uL (4.00-5.50); RED CELL DISTRIBUTION WIDTH 18.7 % (11.0-15.5); WHITE BLOOD COUNT (AUTO) 10.8 K/uL (4.8-10.8)
[2024-07-04] MEDS ORDERED: MAGNESIUM 2GM PREMIX 50ML 50 ML IV SCH (14:00)
[2024-07-04 14:01] LABS: CREATININE 0.6 mg/dL (0.5-1.0)
[2024-07-04 14:14] LABS: B-TYPE NATRIURETIC PEPTIDE 5 pg/mL (0-100)
[2024-07-04] MEDS: IpraTROPium/alBUTERol SULFATE 3 ML SOLUTION IH ONE (15:00)
[2024-07-04 15:01] VITALS: PULSE 84; RESP 18
--- NOTE | 2024-07-04 16:25 | HMCIMG ---
CHEST 1VW HISTORY: Shortness of breath COMPARISON: None FINDINGS: A frontal projection of the chest was obtained. Mild bilateral pulmonary infiltrates are seen may be related to mild pulmonary vascular congestion with possible superimposed pneumonitis. The heart is borderline enlarged. Degenerative changes are seen. No evidence of aortic calcification is seen. IMPRESSION: 1. Mild bilateral pulmonary infiltrates are seen may be related to mild pulmonary vascular congestion with possible superimposed pneumonitis.
[2024-07-04] MEDS ORDERED: AZIT250T9 PO (16:36)
[2024-07-04] MEDS ORDERED: METH4TAB3 PO (16:36)
--- NOTE | 2024-07-04 16:36 | ERN ---
General Chief Complaint: Adult-Asthma Stated Complaint: CP ASTHMA Time Seen by MD: 13:17 Time Seen by Midlevel: 13:17 Source: patient History of Present Illness Initial Comments Patient is a 48-year-old female with a past medical history of asthma presenting to the emergency department with shortness of breaths. Patient reports using her albuterol inhaler but ran out this morning. She reports audible wheezing but denies any other symptoms at this time. Allergies: Coded Allergies: No Known Drug Allergies (Verified Allergy, Unknown, 03/27/17) Home Meds Active Scripts Methylprednisolone (Medrol) 4 Mg Tab.ds.pk, 1 TAB PO AD for 6 Days, #21 TAB 0 Refills 6 on day 1 then reduce by one tablet daily until gone Prov:MARGARETTE SALINAS 07/04/24 Azithromycin (Azithromycin) 250 Mg Tablet, 1 TAB PO AD for 5 Days, #6 TAB 0 Refills 2 the first day followed by 1 for days 2-5 Prov:MARGARETTE SALINAS 07/04/24 Loratadine (Loratadine) 10 Mg Tablet, 1 TAB PO DAILY for allergy symptoms for 30 Days, #30 TAB 0 Refills Prov:LEONIE ALLEN 04/16/24 Montelukast Sodium (Singulair) 10 Mg Tablet, 1 TAB PO DAILY for 30 Days, #30 TAB 0 Refills Prov:LEONIE ALLEN 04/16/24 Albuterol Sulfate (Ventolin Hfa/Proventil Hfa/Proair Hfa) 90 Mcg Puff, 1 PUFF IH Q4H PRN for SHORTNESS OF BREATH for 5 Days, #1 INH 0 Refills PHARMACY TO DISPENSE 1 INHALER FOR USE Prov:LEONIE ALLEN 04/16/24 Albuterol Sulfate (Albuterol Sulfate) 0.63 Mg/3 Ml Vial.neb, 0.63 MG IH TID PRN for SHORTNESS OF BREATH for 30 Days, #30 INH 2 Refills Prov:WILMA PEDRAZA MD 06/22/23 Amoxicillin/Potassium Clav (Amox Tr-K Clv 875-125 mg Tab) 875 Mg-125 Mg Tablet, 1 EACH PO BID for 7 Days, #14 TAB 0 Refills Prov:WILMA PEDRAZA MD 06/22/23 Levothyroxine Sodium (Synthroid 50 Mcg Tab) 50 Mcg Tablet, 50 MCG PO DAILY@0630, #30 TAB 0 Refills Prov:REENA SETHI AGPCNP 04/11/23 Reported Medications Albuterol Sulfate (Albuterol Sulfate) 2.5 Mg/3 Ml (0.083 %) Vial.neb, 2.5 MG IH Q6HPRN PRN for SHORTNESS OF BREATH/WHEEZING, INH 06/21/23 Past Medical History Past Medical History: Asthma, Hypothyroid Medical History Other: THYROID Past Surgical History: None Family History Family History: HTN Social History Social History: Negative, Lives with family, Other Female( History) History: Not Applicable : 4 Para: 4 Aborts: 0 ROS Dictation CONSTITUTIONAL: Negative except for HPI HEAD/FACE: Negative except for HPI EENT: Negative except for HPI RESPIRATORY: Negative except for HPI GASTROINTESTINAL/ABDOMINAL: Negative except for HPI GENITOURINARY: Negative except for HPI MUSCULOSKELETAL: Negative except for HPI INTEGUMENTARY: Negative except for HPI NEUROLOGICAL/PSYCH: Negative except for HPI HEMATOLOGIC/LYMPHATIC: Negative except for HPI All Systems Negative, Except as noted above. 13 point review of systems assessed and all negative except for above. Physical Exam Physical Exam Dictation Vital Signs reviewed General Appearance: Alert, oriented x 3, no acute distress, well developed, nourished. Head and Face: non-traumatic. Eyes: PERRL, pink conjunctivas, eyelid no trauma, anterior chamber with arcus senilis. Ears: Pinnas intact and no signs of trauma or erythema ear canals clear and no discharge TM no erythema Nose: No discharge, no bleeding. Oropharynx: Mouth normal, tongue pink, pharynx clear,no erythema, tonsils no exudates, no abscesses noted, mucous membrane moist Neck: Supple, non-tender, no thyromegaly, no masses, no JVD, no bruits Breast:Deferred Chest:No tenderness, no crepitus, no paradoxical movement, no retractions Lungs:Clear, well-ventilated, symmetric, no rales, wheezing to bilateral lung lei, no rhonchi, no stridor, good breath sounds bilaterally Heart: Regular rate, regular rhythm, no murmur, no gallops Vascular: no peripheral edema, Abdomen: Soft, positive bowel sounds, nondistended, no guarding, nontender, no rebound, no masses no hepatomegaly, no splenomegaly, no Courtney's sign, no hernias. Rectal: Deferred Genital: Deferred Neurological: Normal speech, motor function intact, sensory function intact Musculoskeletal: Neck nontender, full range of motion, back nontender, full range of motion, Extremities: nontender, full range of motion Skin: Color pink, dry, no turgor, no rash, no lacerations, no abrasions, no contusions. Lymphatic: Deferred Results Laboratory and Microbiology Lab and Micro Result Laboratory Tests Test 07/04/24 13:42 White Blood Count 10.8 K/uL (4.8-10.8) Red Blood Count 4.03 MIL/uL (4.00-5.50) Hemoglobin 8.5 g/dL (12.0-16.0) L Hematocrit 31.2 % (36-48) L Mean Corpuscular Volume 77.4 fL (79-99) L Mean Corpuscular Hemoglobin 21.1 pg (27.0-33.0) L Mean Corpuscular Hemoglobin Concent 27.2 g/dL (32.0-36.0) L Red Cell Distribution Width 18.7 % (11.0-15.5) H Platelet Count 485 K/uL (130-400) H Mean Platelet Volume 9.5 fL (7.5-10.5) Immature Granulocyte % (Auto) 0.6 % (0-1) Neutrophils (%) (Auto) 67.9 % (40.0-77.0) Lymphocytes (%) (Auto) 15.5 % (21.0-51.0) L Monocytes (%) (Auto) 5.5 % (3.0-13.0) Eosinophils (%) (Auto) 9.7 % (0.0-8.0) H Basophils (%) (Auto) 0.8 % (0.0-5.0) Neutrophils # (Auto) 7.4 K/uL (1.8-7.7) Lymphocytes # (Auto) 1.7 K/uL (1.0-4.8) Monocytes # (Auto) 0.6 K/uL (0.1-1.0) Eosinophils # (Auto) 1.05 K/uL (0.00-0.70) H Basophils # (Auto) 0.09 K/uL (0.00-0.20) Absolute Immature Granulocyte (auto 0.06 K/uL (0-1) Nucleated Red Blood Cells 0.0 % (0.0-0.19) Red Blood Cell Morphology See comments Sodium Level 142 mmol/L (136-145) Potassium Level 4.0 mmol/L (3.5-5.1) Chloride Level 103 mmol/L (101-111) Carbon Dioxide Level 33 mmol/L (21-32) H Blood Urea Nitrogen 19 mg/dL (7-18) H Creatinine 0.6 mg/dL (0.5-1.0) Glomerular Filtration Rate Calc 110 mL/min (>90) Random Glucose 107 mg/dL (70-105) H Total Calcium 8.9 mg/dL (8.5-10.1) Troponin I High Sensitivity < 4 ng/L (4-50) L B-Type Natriuretic Peptide 5 pg/mL (0-100) Labs Reviewed?: Yes MDM MDM: Differential diagnosis: Acute asthma exacerbation, viral syndrome, pneumonia There are no social concerns with this patient. Prescription drug management Prescriptions will include: Azithromycin and Medrol pack Medical management and examination interpretation discussions were had by me with other qualified healthcare professionals as indicated for the patient's care. ED Course Orders Procedure Category Date Status Time Cbc With Differential LAB 07/04/24 Complete 13:38 Basic Metabolic Panel LAB 07/04/24 Complete 13:38 B-Type Natriuretic LAB 07/04/24 Complete Peptide 13:38 Chest 1vw RAD 07/04/24 Resulted 13:38 Troponin I High LAB 07/04/24 Complete Sensitivity 13:38 Ipratropium/Albuterol PHA 07/04/24 Complete Neb (Duoneb) 14:00 Methylprednisolone PHA 07/04/24 Complete Succ 125mg (Solu-Medr 14:00 Magnesium 2gm Premix PHA 07/04/24 Complete 50ml (Magnesium 2gm 14:00 Current Medications Medications (Trade) Dose Ordered Sig/Dheeraj Route PRN Reason Start Time Stop Time Status Last Admin Dose Admin Albuterol (DUOneb) 1 UDVIAL ONCE ONCE IH 07/04/24 14:00 07/04/24 14:01 DC 07/04/24 15:00 Magnesium Sulfate 50 ml @ 0 mls/hr PROTOCOL IV 07/04/24 14:00 07/04/24 17:22 DC Methylprednisolone Sodium Succinate (Solu-medROL 125MG) 125 mg ONCE ONCE IVP 07/04/24 14:00 07/04/24 14:01 DC 07/04/24 17:10 Vital Signs Date Time Temp Pulse Resp B/P (MAP) Pulse Ox O2 Delivery O2 Flow Rate FiO2 07/04/24 17:14 98.1 85 16 120/70 98 Room Air* 0 21 07/04/24 15:01 84 18 07/04/24 13:47 97.9 89 16 120/74 93 Room Air [place] [id number] [address] IMAGING REPORT Signed PATIENT: NEFTALI HERNÁNDEZ MR#: [id number] : 1975 SEX: F AGE: 48 LOCATION: [facility] ORDER 38 STATUS: REG ER REPORT#: [id number] SERVICE 37 REASON: SOB ORDERING PHYSICIAN: MARGARETTE SALINAS PROCEDURE: CXR1VW - CHEST 1VW CHEST 1VW HISTORY: Shortness of breath COMPARISON: None FINDINGS: A frontal projection of the chest was obtained. Mild bilateral pulmonary infiltrates are seen may be related to mild pulmonary vascular congestion with possible superimposed pneumonitis. The heart is borderline enlarged. Degenerative changes are seen. No evidence of aortic calcification is seen. IMPRESSION: 1. Mild bilateral pulmonary infiltrates are seen may be related to mild pulmonary vascular congestion with possible superimposed pneumonitis. DICTATED BY: IVAN RADFORD MD DATE: 07/04/241621 ELECTRONICALLY SIGNED BY: IVAN RADFORD MD DATE: 07/04/24 162 DX & DISP Disposition: Discharge Departure Impression: Primary Impression: Acute asthma exacerbation Additional Impression: Pneumonitis Condition: Stable Scripts Methylprednisolone (Medrol) 4 Mg Tab.ds.pk 1 TAB PO AD for 6 Days, #21 TAB 0 Refills 6 on day 1 then reduce by one tablet daily until gone Prov: MARGARETTE SALINAS 07/04/24 Azithromycin (Azithromycin) 250 Mg Tablet 1 TAB PO AD for 5 Days, #6 TAB 0 Refills 2 the first day followed by 1 for days 2-5 Prov: MARGARETTE SALINAS 07/04/24 Referrals: SELF,REFERRAL (PCP) Time of Disposition: 16:36 I have reviewed the case, and I agree with, Diagnosis and Plan I performed the substantive portion of the visit. I have reviewed and personally made and approve the management plan that is documented in the note by myself or the REILLY. I acknowledge for responsibility for the patient's management plan. MARGARETTE SALINAS Jul 04, 2024 16:36
--- NOTE | 2024-07-04 17:02 | NUR ---
PT MOVED TO FT IN SYSTEM AT THIS TIME HOWEVER PT CALLED IN LOBBY NO ANSWER OKSANA CALL AGAIN IN 5 MIN
[2024-07-04] MEDS: Solu-medROL 125MG VIAL IVP ONE (17:10)
[2024-07-04 17:14] VITALS: BP 120/70; PULSE 85; RESP 16; TEMP 98.1; O2SAT 98
== END 2024-07-04 17:22 | disposition home or self-care (01) ==
LOC: EDH 13:15
DX: J45.901 Unspecified asthma with (acute) exacerbation (principal); J98.4 Other disorders of lung; E03.9 Hypothyroidism, unspecified; Z79.890 Hormone replacement therapy; Z79.899 Other long term (current) drug therapy
CPT/HCPCS: 99284; 96374; 71045; 84484; 80048; 83880; 85025; 36415; 94640; J2919